=== PATIENT | male | born 1970 | race Caucasian/White ===

== ENCOUNTER 2016-11-11 22:26 | Emergency (ER) | payer OTHER ==
[2016-11-11] MEDS ORDERED: methylPREDNISolone SOD SUCCI 125 MG/2 ML VIAL IV STA (23:14)
[2016-11-11] MEDS ORDERED: diphenhydrAMINE 50 MG CAP PO STA (23:14)
[2016-11-11] MEDS ORDERED: SODIUM CHLORIDE 0.9% 1,000 ML IV STA (23:14)
[2016-11-11] MEDS ORDERED: FAMOTIDINE 20 MG/2 ML VIAL IV STA (23:14)
[2016-11-11] MEDS ORDERED: diphenhydrAMINE 50 MG/ML 1 ML VIAL IVP STA (23:16)
--- NOTE | 2016-11-11 23:18 | ED ---
General Adult HPI <Alejandro Vazquez - Last Filed: 11/12/16 01:30> - General Source: patient, family, RN notes reviewed Mode of arrival: ambulatory Limitations: no limitations <George Thornton - Last Filed: 11/12/16 13:45> - General Chief complaint: ENT Stated complaint: Swollen tongue, dif breathing Time Seen by Provider: 11/11/16 23:09 - History of Present Illness Initial comments: Chief complaint history of present illness a 46-year-old male who took Motrin 400 mg approximately 8 PM shortly thereafter started having significant swelling to his tongue. The patient has similar episode several years ago with lisinopril which has since been stopped. Around emergency room the patient had an IV started immediately given site Medrol, prednisone and Benadryl. No other hives or problems. (George Thornton) - Related Data Previous Rx's Medication Instructions Recorded cloNIDine HCL [Catapres] 0.1 mg PO BID #60 tab 10/06/14 Famotidine [Pepcid] 20 mg PO BID #10 tablet 11/12/16 predniSONE 20 mg PO BID #10 tab 11/12/16 Allergies Allergy/AdvReac Type Severity Reaction Status Date / Time No Known Allergies Allergy Verified 11/11/16 22:40 Review of Systems ROS Other: All systems not noted in ROS Statement are negative. <GeorgeAlejandro - Last Filed: 11/12/16 01:30> ROS Other: All systems not noted in ROS Statement are negative. <NorbertoGeorge - Last Filed: 11/12/16 13:45> ROS Statement: Those systems with pertinent positive or pertinent negative responses have been documented in the HPI. Review of systems no other complaints this time other than a significantly enlarged tongue. The patient is handling his secretions by using a Yankauer suction device with good effect. Patient denying any chest pain he is able to breathe through his nose despite the size of his tongue. No chest pain palpitations. No hives. No rashes. All systems were otherwise reviewed. Past medical problems denies any previous surgeries. The patient is morbidly obese over 350 pounds. Past history of hypertension. Past history of swollen tongue on lisinopril i.e. KEVIN inhibitor. He has not been on those medications for over a year. Nonsmoker nondrinker. No known ALLERGIES. (George Thornton) Past Medical History Past Medical History: Hypertension, Sleep Apnea/CPAP/BIPAP Additional Past Medical History / Comment(s): 10/06/14 Pt presented to [facility] ER with swelling of the tongue and throat. Prior to going to bed last nite pt noticed fromt lower tooth ache. Other HX: Morbid obesity, sleep apnea with CPAP History of Any Multi-Drug Resistant Organisms: None Reported Past Surgical History: No Surgical Hx Reported Additional Past Anesthesia/Blood Transfusion Reaction / Comment(s): Pt has never recieved blood. Past Psychological History: No Psychological Hx Reported Additional Psychological History / Comment(s): Pt lives at home with parents. He is independent. 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 Smoking Status: Never smoker Past Alcohol Use History: Rare Past Drug Use History: None Reported - Past Family History Father Family Medical History: Diabetes Mellitus Mother Family Medical History: Diabetes Mellitus <NorbertoGeorge - Last Filed: 11/12/16 13:45> General Exam <Alejandro Vazquez - Last Filed: 11/12/16 01:30> Limitations: no limitations <George Thornton - Last Filed: 11/12/16 13:45> - General Exam Comments Initial Comments: General: The patient is awake and alert, presents with a significantly swollen tongue after taking Motrin. Vital signs show temperature 90.9 pulse 70 respiratory rate 20 pulse ox on percent room air blood pressure elevated 182/109. Patient does have a history of hypertension. He is in some distress.. Eye: Pupils are equal, round and reactive to light, extra-ocular movements are intact ; there is normal conjunctiva bilaterally. No signs of icterus. Ears, nose, mouth and throat: There are moist mucous membranes, patient has significant only swollen tongue. Neck: The neck is supple, there is no tenderness or JVD. Cardiovascular: There is a regular rate and rhythm. No murmur, rub or gallop is appreciated. Respiratory: Lungs are clear to auscultation, respirations are non-labored, breath sounds are equal. No wheezes, stridor, rales, or rhonchi. Gastrointestinal: Morbid obese but no complaints of any nausea vomiting or diarrhea. Back: No back pain. Musculoskeletal: Normal ROM, no tenderness, chronic edema but no evidence of any hives or skin rash. Neurological: No noted or complained of any neuro deficits. Skin: Skin is warm and dry and no rashes or lesions are noted. (George Thornton) Course <Alejandro Vazquez - Last Filed: 11/12/16 01:30> <George Thornton - Last Filed: 11/12/16 13:45> Vital Signs 11/11/16 11/11/16 11/11/16 22:38 23:18 23:58 Temperature 99 F Pulse Rate 70 70 67 Respiratory 20 18 18 Rate Blood Pressure 182/109 179/114 168/95 O2 Sat by Pulse 100 99 99 Oximetry 11/12/16 11/12/16 01:09 01:44 Temperature 99.1 F 96 F L Pulse Rate 76 76 Respiratory 18 18 Rate Blood Pressure 156/87 154/98 O2 Sat by Pulse 98 96 Oximetry - Reevaluation(s) Reevaluation #1: 11/12/16 01:29 Patient is feeling markedly better at this time he will be discharged on appropriate medication (Alejandro Vazquez) Medical Decision Making - Lab Data Result diagrams: 11/11/16 23:30 11/11/16 23:30 <Alejandro Vazquez - Last Filed: 11/12/16 01:30> - Lab Data Result diagrams: 11/11/16 23:30 11/11/16 23:30 <George Thornton - Last Filed: 11/12/16 13:45> - Medical Decision Making Patient steadily improving with the tongue becoming slightly smaller on every reexamination. The patient will continue being observed for slightly longer. We did discuss the need for hospitalization and does not come down safely to a size he can handle at home. Labs show white count 7.3 hemoglobin 15 hematocrit of 47 with a potassium 4.2. BUN 18 creatinine 1.2 with a GFR greater than 60. Glucose 106. Patient will continue to be observed he wants to go home but not quite ready yet. Final disposition will be determined by Dr. Femi Vazquez (George Thornton) - Lab Data Lab Results 11/11/16 11/11/16 Range/Units 23:30 23:30 WBC 7.3 (3.8-10.6) k/uL RBC 5.28 (4.30-5.90) m/uL Hgb 15.6 (13.0-17.5) gm/dL Hct 47.3 (39.0-53.0) % MCV 89.5 (80.0-100.0) fL MCH 29.6 (25.0-35.0) pg MCHC 33.1 (31.0-37.0) g/dL RDW 13.3 (11.5-15.5) % Plt Count 206 (150-450) k/uL Neutrophils % 63 % Lymphocytes % 24 % Monocytes % 6 % Eosinophils % 4 % Basophils % 1 % Neutrophils # 4.6 (1.3-7.7) k/uL Lymphocytes # 1.7 (1.0-4.8) k/uL Monocytes # 0.4 (0-1.0) k/uL Eosinophils # 0.3 (0-0.7) k/uL Basophils # 0.1 (0-0.2) k/uL Sodium 143 (137-145) mmol/L Potassium 4.2 (3.5-5.1) mmol/L Chloride 108 H (98-107) mmol/L Carbon Dioxide 24 (22-30) mmol/L Anion Gap 11 mmol/L BUN 18 (9-20) mg/dL Creatinine 1.20 (0.66-1.25) mg/dL Est GFR (MDRD) Af Amer >60 (>60 ml/min/1.73 sqM) Est GFR (MDRD) Non-Af >60 (>60 ml/min/1.73 sqM) Glucose 106 H (74-99) mg/dL Calcium 9.0 (8.4-10.2) mg/dL Disposition <Alejandro Vazquez - Last Filed: 11/12/16 01:30> Time of Disposition: 13:45 <George Thornton - Last Filed: 11/12/16 13:45> Clinical Impression: Allergic reaction, Glossitis, Urticaria Disposition: HOME SELF-CARE Condition: Good Instructions: Urticaria (ED), General Allergic Reaction (ED) Prescriptions: Famotidine [Pepcid] 20 mg PO BID #10 tablet predniSONE 20 mg PO BID #10 tab Referrals: Filiberto Morris DO [Primary Care Provider] - 1-2 days
[2016-11-11 23:19] VITALS: RESP 18
[2016-11-11 23:43] LABS: Basophils # (A) 0.1 k/uL (0-0.2); Basophils % (A) 1 %; CH 30.3; Eosinophils # (A) 0.3 k/uL (0-0.7); Eosinophils % (A) 4 %; HCT 47.3 % (39.0-53.0); HDW 2.96; HGB 15.6 gm/dL (13.0-17.5); Luc # (Auto) 0.23; Luc % (Auto) 3; Lymphocytes # (A) 1.7 k/uL (1.0-4.8); Lymphocytes % (A) 24 %; MCH 29.6 pg (25.0-35.0); MCHC 33.1 g/dL (31.0-37.0); MCV 89.5 fL (80.0-100.0); Mean Platelet Volume 6.6; Monocytes # (A) 0.4 k/uL (0-1.0); Monocytes % (A) 6 %; Neutrophils # (A) 4.6 k/uL (1.3-7.7); Neutrophils % (A) 63 %; RBC 5.28 m/uL (4.30-5.90); RDW 13.3 % (11.5-15.5); WBC 7.3 k/uL (3.8-10.6); WBC (Perox) 7.11
[2016-11-11 23:57] LABS: Anion Gap 11 mmol/L; Blood Urea Nitrogen 18 mg/dL (9-20); Carbon Dioxide 24 mmol/L (22-30); Chloride 108 mmol/L (98-107); Glucose 106 mg/dL (74-99); Non-African American GFR(MDRD) >60 (>60 ml/min/1.73 sqM); Potassium 4.2 mmol/L (3.5-5.1); Sodium 143 mmol/L (137-145)
[2016-11-12 01:11] VITALS: PULSE 76
[2016-11-12 01:45] VITALS: BP 154/98; TEMP 96
== END 2016-11-12 01:44 | disposition home or self-care (01) ==
LOC: EC 22:26
DX: L50.0 Allergic urticaria (principal); I10 Essential (primary) hypertension; Z79.899 Other long term (current) drug therapy
CPT/HCPCS: 99283; 96374; 96375 ×2; 96361 ×2; 36415; 80048; 85025; J1200; J2930

== ENCOUNTER 2018-01-08 23:47 | Inpatient (IN) | payer OTHER ==
--- NOTE | 2018-01-09 00:17 | ED ---
General Adult HPI - General Chief complaint: Shortness of Breath Stated complaint: GINA Time Seen by Provider: 01/09/18 00:10 Source: patient, RN notes reviewed Mode of arrival: ambulatory Limitations: no limitations - History of Present Illness Initial comments: Patient is a pleasant 47-year-old male presenting to the emergency department shortness of breath. Onset was around a half an hour ago. Patient did have an episode this morning and seen only around 5 minutes. Otherwise no history of similar symptoms previously. No associated chest pain. No cough. Patient does not feel anxious. No fevers. - Related Data Home Medications Medication Instructions Recorded Confirmed amLODIPine BESYLATE [Norvasc] 10 mg PO 01/08/18 cloNIDine HCL [Catapres] 0.2 mg PO BID 01/08/18 01/08/18 Allergies Allergy/AdvReac Type Severity Reaction Status Date / Time aspirin Allergy Swelling Verified 08/29/17 18:36 Review of Systems ROS Statement: Those systems with pertinent positive or pertinent negative responses have been documented in the HPI. ROS Other: All systems not noted in ROS Statement are negative. Constitutional: Denies: fever Eyes: Denies: eye pain ENT: Denies: ear pain Respiratory: Reports: dyspnea. Denies: cough Cardiovascular: Denies: chest pain Endocrine: Denies: fatigue Gastrointestinal: Denies: abdominal pain Genitourinary: Denies: dysuria Musculoskeletal: Denies: back pain Skin: Denies: rash Neurological: Denies: headache Past Medical History Past Medical History: Hypertension, Sleep Apnea/CPAP/BIPAP Additional Past Medical History / Comment(s): 10/06/[address] [facility] ER with swelling of the tongue and throat. Prior to going to bed last nite pt noticed fromt lower tooth ache. Other HX: Morbid obesity, sleep apnea with CPAP History of Any Multi-Drug Resistant Organisms: None Reported Past Surgical History: No Surgical Hx Reported Additional Past Anesthesia/Blood Transfusion Reaction / Comment(s): Pt has never recieved blood. Past Psychological History: No Psychological Hx Reported Smoking Status: Never smoker Past Alcohol Use History: Rare Past Drug Use History: None Reported - Past Family History Father Family Medical History: Diabetes Mellitus Mother Family Medical History: Diabetes Mellitus General Exam Limitations: no limitations General appearance: alert Head exam: Present: atraumatic Eye exam: Present: normal appearance, PERRL ENT exam: Present: normal oropharynx Neck exam: Present: normal inspection Respiratory exam: Present: normal lung sounds bilaterally. Absent: wheezes Cardiovascular Exam: Present: tachycardia, normal heart sounds Expanded Peripheral pulses: 2+: Radial (R), Radial (L), Dorsalis Pedis (R), Dorsalis Pedis (L) GI/Abdominal exam: Present: soft. Absent: tenderness Extremities exam: Present: normal inspection. Absent: pedal edema, calf tenderness Neurological exam: Present: alert Psychiatric exam: Present: normal affect, normal mood Skin exam: Present: normal color Course Vital Signs 01/08/18 01/09/18 23:50 00:16 Temperature 97.7 F Pulse Rate 110 H 93 Respiratory 28 H 27 H Rate Blood Pressure 175/91 155/84 O2 Sat by Pulse 99 100 Oximetry - Reevaluation(s) Reevaluation #1: 01/09/18 01:58 Patient does meet Sirs criteria. There is suspected pneumonia and therefore patient meet sepsis criteria. Blood culture and lactic acid and IV antibiotics will be ordered. EKG Findings - EKG Comments: EKG Findings:: Neuro complex tachycardia with a rate of 108. QRS 116. QT 494. QTC 661. [place] indeterminate. Right bundle branch block. Inferior Q waves. Nonspecific T waves. Medical Decision Making - Medical Decision Making Patient is reevaluated and somewhat improved. CT findings are unclear at this time. Patient will be admitted and treated for possible pneumonia pending pulmonary evaluation. Practitioner Jacqueline jv baseball coach was paged for admission for Dr. Ball, covering for Dr. chan, who admits for Dr. Morris. Patient updated. - Lab Data Result diagrams: 01/09/18 00:15 01/09/18 00:15 Lab Results 01/09/18 01/09/18 01/09/18 Range/Units 00:15 00:15 00:15 WBC (3.8-10.6) k/uL RBC (4.30-5.90) m/uL Hgb (13.0-17.5) gm/dL Hct (39.0-53.0) % MCV (80.0-100.0) fL MCH (25.0-35.0) pg MCHC (31.0-37.0) g/dL RDW (11.5-15.5) % Plt Count (150-450) k/uL Neutrophils % % Lymphocytes % % Monocytes % % Eosinophils % % Basophils % % Neutrophils # (1.3-7.7) k/uL Lymphocytes # (1.0-4.8) k/uL Monocytes # (0-1.0) k/uL Eosinophils # (0-0.7) k/uL Basophils # (0-0.2) k/uL Sodium 142 (137-145) mmol/L Potassium 3.8 (3.5-5.1) mmol/L Chloride 105 (98-107) mmol/L Carbon Dioxide 18 L (22-30) mmol/L Anion Gap 19 mmol/L BUN 19 (9-20) mg/dL Creatinine 1.20 (0.66-1.25) mg/dL Est GFR (CKD-EPI)AfAm 82 (>60 ml/min/1.73 sqM) Est GFR (CKD-EPI)NonAf 71 (>60 ml/min/1.73 sqM) Glucose 164 H (74-99) mg/dL Calcium 9.6 (8.4-10.2) mg/dL Magnesium 2.2 (1.6-2.3) mg/dL Total Bilirubin 0.6 (0.2-1.3) mg/dL AST 24 (17-59) U/L ALT 27 (21-72) U/L Alkaline Phosphatase 111 (38-126) U/L Total Creatine Kinase 91 (55-170) U/L CK-MB (CK-2) 0.5 (0.0-2.4) ng/mL CK-MB (CK-2) Rel Index 0.5 Troponin I <0.012 (0.000-0.034) ng/mL NT-Pro-B Natriuret Pep 62 pg/mL Total Protein 7.2 (6.3-8.2) g/dL Albumin 4.2 (3.5-5.0) g/dL 01/09/18 Range/Units 00:15 WBC 9.3 (3.8-10.6) k/uL RBC 5.10 (4.30-5.90) m/uL Hgb 14.8 (13.0-17.5) gm/dL Hct 42.7 (39.0-53.0) % MCV 83.7 (80.0-100.0) fL MCH 29.0 (25.0-35.0) pg MCHC 34.6 (31.0-37.0) g/dL RDW 13.3 (11.5-15.5) % Plt Count 257 (150-450) k/uL Neutrophils % 59 % Lymphocytes % 28 % Monocytes % 8 % Eosinophils % 2 % Basophils % 0 % Neutrophils # 5.5 (1.3-7.7) k/uL Lymphocytes # 2.6 (1.0-4.8) k/uL Monocytes # 0.7 (0-1.0) k/uL Eosinophils # 0.2 (0-0.7) k/uL Basophils # 0.0 (0-0.2) k/uL Sodium (137-145) mmol/L Potassium (3.5-5.1) mmol/L Chloride (98-107) mmol/L Carbon Dioxide (22-30) mmol/L Anion Gap mmol/L BUN (9-20) mg/dL Creatinine (0.66-1.25) mg/dL Est GFR (CKD-EPI)AfAm (>60 ml/min/1.73 sqM) Est GFR (CKD-EPI)NonAf (>60 ml/min/1.73 sqM) Glucose (74-99) mg/dL Calcium (8.4-10.2) mg/dL Magnesium (1.6-2.3) mg/dL Total Bilirubin (0.2-1.3) mg/dL AST (17-59) U/L ALT (21-72) U/L Alkaline Phosphatase (38-126) U/L Total Creatine Kinase (55-170) U/L CK-MB (CK-2) (0.0-2.4) ng/mL CK-MB (CK-2) Rel Index Troponin I (0.000-0.034) ng/mL NT-Pro-B Natriuret Pep pg/mL Total Protein (6.3-8.2) g/dL Albumin (3.5-5.0) g/dL - Radiology Data Radiology results: report reviewed (CT angios the chest negative for pulmonary embolism. Interstitial pulmonary infiltrates or nonspecific.), image reviewed ( Chest x-ray shows no acute process) Disposition Clinical Impression: Dyspnea Disposition: ADMITTED IP TO THIS HOSP Is patient prescribed a controlled substance at d/c from ED?: No Referrals: Arturo,Filiberto, DO [Primary Care Provider] - 1-2 days Decision Time: 01:59
[2018-01-09 00:38] LABS: Albumin 4.2 g/dL (3.5-5.0); Calcium 9.6 mg/dL (8.4-10.2); Magnesium 2.2 mg/dL (1.6-2.3); Potassium 3.8 mmol/L (3.5-5.1); Total Bilirubin 0.6 mg/dL (0.2-1.3); Total Protein 7.2 g/dL (6.3-8.2)
[2018-01-09] MEDS ORDERED: RX INFO: IV CONTRAST WAS GIVEN 1 EACH MISC MISCELLANE PRN (00:44)
[2018-01-09 00:47] LABS: Creatine Kinase 91 U/L (55-170)
--- NOTE | 2018-01-09 00:54 | XR ---
EXAMINATION TYPE: XR chest 2V DATE OF EXAM: 01/09/2018 COMPARISON: 10/06/2014 HISTORY: Difficulty breathing TECHNIQUE: Frontal and lateral views of the chest are obtained. FINDINGS: Heart and mediastinum are normal. Lungs are clear. Diaphragm is normal. There are chest le ads. Bony thorax is intact. IMPRESSION: Normal chest. No change.
[2018-01-09 00:57] LABS: Basophils % (A) 0 %; Eosinophils # (A) 0.2 k/uL (0-0.7); Eosinophils % (A) 2 %; HCT 42.7 % (39.0-53.0); HGB 14.8 gm/dL (13.0-17.5); Lymphocytes # (A) 2.6 k/uL (1.0-4.8); Lymphocytes % (A) 28 %; MCHC 34.6 g/dL (31.0-37.0); MCV 83.7 fL (80.0-100.0); Mean Platelet Volume 7.4; Monocytes # (A) 0.7 k/uL (0-1.0); Monocytes % (A) 8 %; Neutrophils # (A) 5.5 k/uL (1.3-7.7); Neutrophils % (A) 59 %; Platelet Count 257 k/uL (150-450); RDW 13.3 % (11.5-15.5); WBC 9.3 k/uL (3.8-10.6)
[2018-01-09 01:00] LABS: Creatine Kinase MB 0.5 ng/mL (0.0-2.4); Troponin I <0.012 ng/mL (0.000-0.034)
--- NOTE | 2018-01-09 01:29 | CT ---
EXAMINATION TYPE: CT angio chest DATE OF EXAM: 01/09/2018 1:22 AM COMPARISON: 10/29/2013 HISTORY: Prior on [email or web address], Chest pain and GINA, R/O PE CT DLP: 1336.60 mGycm Automated exposure control for dose reduction was used. CONTRAST: CTA scan of the thorax is performed with IV Contrast, patient injected with 70 mL of Isovue 370, pulm onary embolism protocol. There are 3-D post processed images.. FINDINGS: There is groundglass type interstitial infiltrate in the mid and lower lung farrar. Heart is enlarged . There is no pericardial effusion. There is no pleural effusion. There is no evidence of a pulmonary mass. There is no sign of aortic aneurysm or dissection. I see no filling defects in the pulmonary a rteries. There is no mediastinal adenopathy. There are no hilar masses. There is mediastinal lipomato sis. Bony thorax is intact. There is spurring in the thoracic spine. IMPRESSION: NO EVIDENCE OF PULMONARY EMBOLISM. CARDIOMEGALY. INTERSTITIAL PULMONARY INFILTRATES ARE NONSPECIFIC. THERE IS CLEARING OF THE NODULAR BILATERAL PULMONARY INFILTRATES COMPARED TO OLD EXAM.
[2018-01-09] MEDS ORDERED: IPRATROPIUM-ALBUTEROL 3 ML NEB INHALATION PRN (01:59)
[2018-01-09] MEDS ORDERED: AZITHROMYCIN 500 MG in SODIUM CHLORIDE 0.9% 250 ML IVPB STA (01:59)
[2018-01-09] MEDS ORDERED: cefTRIAXone IN SWFI 1,000 MG/10 ML SYRINGE IVP STA (01:59)
[2018-01-09] MEDS ORDERED: PNEUMONIA PROTOCOL UTILIZED 1 EACH MISC PO PRN (01:59)
[2018-01-09] MEDS ORDERED: SODIUM CHLORIDE 0.9% 1,000 ML IV SCH (02:00)
[2018-01-09 04:17] VITALS: BMI 54.5
[2018-01-09 05:32] LABS: D-Dimer 0.47 mg/L FEU (<0.60); Partial Thromboplastin Time 24.4 sec (22.0-30.0); Prothrombin Time 10.2 sec (9.0-12.0)
[2018-01-09] MEDS ORDERED: ALPRAZolam 0.25 MG TAB PO STA (06:22)
[2018-01-09] MEDS: IPRATROPIUM-ALBUTEROL 3 ML NEB INHALATION SCH ×4 (07:28→19:36)
[2018-01-09] MEDS: cloNIDine HCL 0.2 MG TAB PO SCH ×2 (09:43→22:46)
--- NOTE | 2018-01-09 10:09 | P.CNPUL ---
History of Present Illness Consult date: 01/09/18 Reason for consult: dyspnea, pneumonia, abnormal CXR/CT Chief complaint: Pneumonia History of present illness: Consult dated 01/09/2018 This is a 47-year-old male who presented to the emergency department for shortness of breath. He tells us that he was apparently told that he might have pneumonia. He was evaluated for see by CT angiogram for pulmonary embolism. PE was not noted. He did have some minimal changes on chest x-ray and CT suggesting possibility of alveolitis or pneumonitis. They're mostly upper lobe. There is a very mild finding. Does not have any fever. No chills. No cough. No wheezing. No phlegm production. No nausea vomiting or diarrhea. His only home medications were amlodipine and clonidine for hypertension. His chest x-ray labs and medications are all reviewed. CAT scan was reviewed as well. He is feeling better. He points mostly to his stomach when he complains about some of his issues. I'm not sure how the stomach is relating to the issues of shortness of breath. Review of Systems A 12 point review of system is positive for shortness of breath Past Medical History Past Medical History: Hypertension, Sleep Apnea/CPAP/BIPAP Additional Past Medical History / Comment(s): 10/06/14 Pt presented to [facility] ER with swelling of the tongue and throat. Prior to going to bed last nite pt noticed fromt lower tooth ache. Other HX: Morbid obesity, sleep apnea with CPAP History of Any Multi-Drug Resistant Organisms: None Reported Past Surgical History: No Surgical Hx Reported Additional Past Anesthesia/Blood Transfusion Reaction / Comment(s): Pt has never recieved blood. Past Psychological History: No Psychological Hx Reported Additional Psychological History / Comment(s): Pt lives at home with parents. He is independent. He has a lead driver's license. Smoking Status: Never smoker Past Alcohol Use History: Rare Past Drug Use History: None Reported - Past Family History Father Family Medical History: Diabetes Mellitus Mother Family Medical History: Diabetes Mellitus Medications and Allergies Home Medications Medication Instructions Recorded Confirmed Type amLODIPine BESYLATE [Norvasc] 10 mg PO DAILY 01/08/18 01/09/18 History cloNIDine HCL [Catapres] 0.2 mg PO BID 01/09/18 01/09/18 History Allergies Allergy/AdvReac Type Severity Reaction Status Date / Time aspirin Allergy Swelling Verified 01/09/18 07:51 Physical Exam Osteopathic Statement: *. No significant issues noted on an osteopathic structural exam other than those noted in the History and Physical/Consult. Vitals: Vital Signs Temp Pulse Pulse Resp BP BP Pulse Ox 01/09/18 07:40 84 01/09/18 07:30 80 95 01/09/18 05:40 98.7 F 104 H 24 140/85 100 01/09/18 03:52 98.3 F 101 H 22 184/112 96 01/09/18 02:27 97.6 F 112 H 18 146/81 99 01/09/18 02:05 84 18 148/94 99 01/09/18 02:00 100 16 148/94 100 01/09/18 00:16 93 27 H 155/84 100 01/08/18 23:50 97.7 F 110 H 28 H 175/91 99 Intake and Output 01/08/18 01/09/18 01/09/18 22:59 06:59 14:59 Other: Voiding Method Toilet # Voids 1 Weight 158 kg No acute distress, oriented 3. Obese. HEENT examination is grossly unremarkable. Mucous membranes are moist. No oral lesions. Neck supple. Full range of motion. No adenopathy thyromegaly or neck vein distention. Cardiovascular examination reveals regular rhythm rate. S1-S2 normal. No S3 or S4. No discernible murmur noted. Lungs reveal mostly clear breath sounds. A few scattered mild rhonchi. No wheezes or crackles. Abdomen soft, bowel sounds are heard. No masses or tenderness. Extremities are intact. No cyanosis clubbing or edema. Skin is without rash or lesion. Neurologic examination is brief but nonfocal. Results - Laboratory Findings CBC and BMP: 01/09/18 00:15 01/09/18 00:15 PT/INR, D-dimer PT 10.2 sec (9.0-12.0) 01/09/18 04:22 INR 1.0 (<1.2) 01/09/18 04:22 D-Dimer 0.47 mg/L FEU (<0.60) 01/09/18 04:22 Abnormal lab findings: Abnormal Labs 01/09/18 01/09/18 00:15 00:15 Carbon Dioxide 18 L Glucose 164 H Plasma Lactic Acid Michael 3.4 H* - Diagnostic Findings Chest x-ray: image reviewed CT scan - chest: image reviewed (Labs x-rays and medications are reviewed) Assessment and Plan Assessment: Assessment Shortness of breath, possibly related to a mild case of pneumonitis or alveolitis. No yessenia consolidation is noted suggesting pneumonia. PE was ruled out. History of hypertension Obesity Vague abdominal complaints Plan: Plan dated 01/09/2018 The patient does not appear particularly at this time. Vital signs are stable. The patient's saturations are excellent. CT angiogram was negative for PE or aortic dissection. The findings on computed tomography scan are very mild at best. Might relate to some very mild pneumonitis or alveolitis. I believe this patient could be safely treated at home with oral antibiotics. I be happy to see him in follow-up in the office. No additional recommendations are made. The patient is a lifelong nonsmoker. Time with Patient: Greater than 30
--- NOTE | 2018-01-09 13:20 | ECHOF ---
Referral Reason:Swelling, dyspnea MEASUREMENTS -------- HEIGHT: 170.2 cm WEIGHT: 157.8 kg BP: 140/85 RVIDd: 2.9 cm (< 3.3) IVSd: 1.3 cm (0.6 - 1.1) LVIDd: 4.2 cm (3.9 - 5.3) LVPWd: 1.3 cm (0.6 - 1.1) IVSs: 1.7 cm LVIDs: 2.8 cm LVPWs: 1.5 cm LA Diam: 3.1 cm (2.7 - 3.8) LAESV Index (A-L): 22.72 ml/m Ao Diam: 3.3 cm (2.0 - 3.7) AV Cusp: 2.3 cm (1.5 - 2.6) MV EXCURSION: 12.495 mm (> 18.000) MV EF SLOPE: 26 mm/s (70 - 150) EPSS: 0.3 cm MV E Davidson: 0.96 m/s MV DecT: 205 ms MV A Davidson: 1.10 m/s MV E/A Ratio: 0.87 AV maxP.26 mmHg AV meanP.52 mmHg FINDINGS -------- Sinus rhythm. This was a technically adequate study. The left ventricular size is normal. There is mild concentric left ventricular hypertrophy. Overa ll left ventricular systolic function is normal with, an EF between 55 - 60 %. The right ventricle is normal in size. Normal LA size by volume 22+/-6 ml/m2. The right atrium is normal in size. The aortic valve is trileaflet and appears structurally normal. Peak/mean gradient across the Aorti c Valve is 14.26mmHg / 7.52mmHg. Mild mitral annular calcification present. The tricuspid valve appears structurally normal. Trace/mild (physiologic) pulmonic regurgitation. The aortic root size is normal. IVC Not well visulized. There is no pericardial effusion. CONCLUSIONS -------- 1. Sinus rhythm. 2. This was a technically adequate study. 3. The left ventricular size is normal. 4. There is mild concentric left ventricular hypertrophy. 5. Overall left ventricular systolic function is normal with, an EF between 55 - 60 %. 6. The right ventricle is normal in size. 7. Normal LA size by volume 22+/-6 ml/m2. 8. The right atrium is normal in size. 9. The aortic valve is trileaflet and appears structurally normal. 10. Peak/mean gradient across the Aortic Valve is 14.26mmHg / 7.52mmHg. 11. Mild mitral annular calcification present. 12. The tricuspid valve appears structurally normal. 13. Trace/mild (physiologic) pulmonic regurgitation. 14. The aortic root size is normal. 15. IVC Not well visulized. 16. There is no pericardial effusion. [employer]: Diann Lane RDCS
--- NOTE | 2018-01-09 14:04 | P.HPIM ---
History of Present Illness 47-year-old male who presented to the emergency department for shortness of breath, cough without any sputum production. He was evaluated for see by CT angiogram for pulmonary embolism. PE was not noted. He did have some minimal changes on chest x-ray and CT suggesting possibility of alveolitis or pneumonitis. They're mostly upper lobe. There is a very mild finding. Does not have any fever. No chills. No cough. No wheezing. No phlegm production. No nausea vomiting or diarrhea. His only home medications were amlodipine and clonidine for hypertension. His chest x-ray labs and medications are all reviewed. CAT scan was reviewed as well. He is feeling better. patient is morbidly obese appears to be in mild the distress may be because of pickwickian syndrome. Will ablate the patient if patient is saturating well will be discharged today. Patient was started on antibiotics for pneumonia here all the CAT scan is not convincing for lower pneumonia Review of Systems REVIEW OF SYSTEMS: CONSTITUTIONAL: No fever, no malaise, no fatigue. HEENT: No recent visual problems or hearing problems. Denied any sore throat. CARDIOVASCULAR: No chest pain, orthopnea, PND, no palpitations, no syncope. PULMONARY: as mentioned in HPI GASTROINTESTINAL: No diarrhea, no nausea, no vomiting, no abdominal pain. Normoactive bowel sounds. NEUROLOGICAL: No headaches, no weakness, no numbness. HEMATOLOGICAL: Denies any bleeding or petechiae. GENITOURINARY: Denies any burning micturition, frequency, or urgency. MUSCULOSKELETAL/RHEUMATOLOGICAL: Denies any joint pain, swelling, or any muscle pain. ENDOCRINE: Denies any polyuria or polydipsia. The rest of the 14-point review of systems is negative. Past Medical History Past Medical History: Hypertension, Sleep Apnea/CPAP/BIPAP Additional Past Medical History / Comment(s): 10/06/14 Pt presented to [facility] ER with swelling of the tongue and throat. Prior to going to bed last nite pt noticed fromt lower tooth ache. Other HX: Morbid obesity, sleep apnea with CPAP History of Any Multi-Drug Resistant Organisms: None Reported Past Surgical History: No Surgical Hx Reported Additional Past Anesthesia/Blood Transfusion Reaction / Comment(s): Pt has never recieved blood. Past Psychological History: No Psychological Hx Reported Additional Psychological History / Comment(s): Pt lives at home with parents. He is independent. 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 Smoking Status: Never smoker Past Alcohol Use History: Rare Past Drug Use History: None Reported - Past Family History Father Family Medical History: Diabetes Mellitus Mother Family Medical History: Diabetes Mellitus Medications and Allergies Home Medications Medication Instructions Recorded Confirmed Type amLODIPine BESYLATE [Norvasc] 10 mg PO DAILY 01/08/18 01/09/18 History cloNIDine HCL [Catapres] 0.2 mg PO BID 01/09/18 01/09/18 History Allergies Allergy/AdvReac Type Severity Reaction Status Date / Time aspirin Allergy Swelling Verified 01/09/18 07:51 Physical Exam Vitals: Vital Signs Temp Pulse Pulse Resp BP BP Pulse Ox 01/09/18 11:28 85 16 01/09/18 11:18 83 16 95 01/09/18 07:40 84 01/09/18 07:30 80 95 01/09/18 05:40 98.7 F 104 H 24 140/85 100 01/09/18 03:52 98.3 F 101 H 22 184/112 96 01/09/18 02:27 97.6 F 112 H 18 146/81 99 01/09/18 02:05 84 18 148/94 99 01/09/18 02:00 100 16 148/94 100 01/09/18 00:16 93 27 H 155/84 100 01/08/18 23:50 97.7 F 110 H 28 H 175/91 99 Intake and Output 01/08/18 01/09/18 01/09/18 22:59 06:59 14:59 Other: Voiding Method Toilet # Voids 1 Weight 158 kg PHYSICAL EXAMINATION: GENERAL: The patient is alert and oriented x3, not in any acute distress. morbidly obese HEENT: Pupils are round and equally reacting to light. EOMI. No scleral icterus. No conjunctival pallor. Normocephalic, atraumatic. No pharyngeal erythema. No thyromegaly. CARDIOVASCULAR: S1 and S2 present. No murmurs, rubs, or gallops. PULMONARY: Chest is clear to auscultation, no wheezing or crackles. ABDOMEN: Soft, nontender, nondistended, normoactive bowel sounds. No palpable organomegaly. MUSCULOSKELETAL: No joint swelling or deformity. EXTREMITIES: No cyanosis, clubbing, or pedal edema. NEUROLOGICAL: Gross neurological examination did not reveal any focal deficits. SKIN: No rashes. Results CBC & Chem 7: 01/09/18 00:15 01/09/18 00:15 Labs: Abnormal Lab Results - Last 24 Hours (Table) 01/09/18 01/09/18 Range/Units 00:15 00:15 Carbon Dioxide 18 L (22-30) mmol/L Glucose 164 H (74-99) mg/dL Plasma Lactic Acid Michael 3.4 H* (0.7-2.0) mmol/L Thrombosis Risk Factor Assmnt - Choose All That Apply Any of the Below Risk Factors Present?: Yes Each Factor Represents 1 point: Age 41-60 years, Obesity (BMI >25), Swollen legs (current) Other Risk Factors: No Other congenital or acquired thrombophilia - If yes, enter type in comment: No Thrombosis Risk Factor Assessment Total Risk Factor Score: 3 Thrombosis Risk Factor Assessment Level: Moderate Risk Assessment and Plan Plan: -shortness of breath: Most probably related to some nonspecific alveolitis as from his previous infection are present ongoing viral illness, with contribution from morbid obesity restrictive lung disease. The patient is clinically doing well will be discharged on antibiotics. Pulmonary evaluated the patient -Morbid obesity with possibility of pickwickian syndrome -Hypertension -sleep apnea uses CPAP machine at home
--- NOTE | 2018-01-09 14:07 | P.DS ---
Providers Date of admission: 01/09/18 09:08 Attending physician: Shannan Ball Consults: 01/09/18 01:59 Consult Physician Routine Consulting Provider: Nina Nelson Consult Reason/Comments: Dyspnea Do you want consulting provider notified?: Yes Primary care physician: Filiberto Morris [facility] Course: please refer to my HPI Plan - Discharge Summary Discharge Rx Participant: Yes New Discharge Prescriptions: New Cefuroxime Axetil [Ceftin] 500 mg PO BID #14 tab Albuterol Inhaler [Ventolin Hfa Inhaler] 1 - 2 puff INHALATION Q6HR PRN #1 inhaler PRN Reason: Shortness Of Breath Or Wheezing Continue amLODIPine BESYLATE [Norvasc] 10 mg PO DAILY cloNIDine HCL [Catapres] 0.2 mg PO BID Discharge Medication List amLODIPine BESYLATE [Norvasc] 10 mg PO DAILY 01/08/18 [History] Albuterol Inhaler [Ventolin Hfa Inhaler] 1 - 2 puff INHALATION Q6HR PRN #1 inhaler 01/09/18 [Rx] Cefuroxime Axetil [Ceftin] 500 mg PO BID #14 tab 01/09/18 [Rx] cloNIDine HCL [Catapres] 0.2 mg PO BID 01/09/18 [History] Follow up Appointment(s)/Referral(s): Filiberto Morris DO [Primary Care Provider] - 3 Days [facility] Visiting Nurse, [NON-STAFF] -
[2018-01-09] MEDS: ALPRAZolam 0.5 MG TAB PO PRN (16:54)
[2018-01-10] MEDS: ALPRAZolam 0.5 MG TAB PO PRN (01:52)
[2018-01-10] MEDS: IPRATROPIUM-ALBUTEROL 3 ML NEB INHALATION SCH ×2 (07:21→11:08)
--- NOTE | 2018-01-10 08:05 | XR ---
EXAMINATION TYPE: XR chest 2V DATE OF EXAM: 01/10/2018 COMPARISON: 01/09/2018 TECHNIQUE: PA and lateral views submitted. HISTORY: Difficulty breathing FINDINGS: The lungs are clear and there is no pneumothorax, pleural effusion, or focal pneumonia. Hypertrophi c and degenerative change of the spine. Pleural thickening stable. IMPRESSION: 1. No acute process.
[2018-01-10] MEDS ORDERED: AZITHROMYCIN 500 MG TAB PO SCH (09:00)
[2018-01-10] MEDS ORDERED: cefTRIAXone IN SWFI 1,000 MG/10 ML SYRINGE IVP SCH (09:00)
[2018-01-10 09:49] LABS: HCT 42.7 % (39.0-53.0); HGB 14.1 gm/dL (13.0-17.5); MCH 29.1 pg (25.0-35.0); MCHC 33.1 g/dL (31.0-37.0); MCV 88.1 fL (80.0-100.0); Mean Platelet Volume 7.1; Platelet Count 238 k/uL (150-450); RBC 4.85 m/uL (4.30-5.90); RDW 13.7 % (11.5-15.5); WBC 8.5 k/uL (3.8-10.6)
[2018-01-10 10:21] LABS: Anion Gap 16 mmol/L; Blood Urea Nitrogen 16 mg/dL (9-20); Calcium 9.1 mg/dL (8.4-10.2); Carbon Dioxide 23 mmol/L (22-30); Chloride 103 mmol/L (98-107); Glucose 200 mg/dL (74-99); Potassium 4.1 mmol/L (3.5-5.1); Sodium 142 mmol/L (137-145)
--- NOTE | 2018-01-10 10:49 | P.PN ---
Subjective Progress Note Date: 01/10/18 Principal diagnosis: Pneumonia Progress note dated 01/10/2018 This is a 37-year-old obese male who presented to the emergency department with complaints of shortness of breath. He is a lifelong nonsmoker. He had a CT angiogram that was negative for pulmonary embolism. He was thought to possibly have some pneumonia. At best he has some very mild alveolitis or pneumonitis. Anyway, the patient's feeling much better could be discharged home on some oral antibiotics. I suspect he does have a component of sleep apnea syndrome and possibly pickwickian syndrome. This seems to be evaluated as an outpatient. In addition, even though he never smoked, pulmonary function test would be helpful. Objective - Vital Signs Vital signs: Vital Signs Temp 98.2 F 01/10/18 05:49 Pulse 60 01/10/18 07:31 Resp 24 01/10/18 05:49 BP 137/95 01/10/18 05:49 Pulse Ox 99 01/10/18 07:22 Intake & Output 01/09/18 01/10/18 01/10/18 18:59 06:59 18:59 Intake Total 1200 Output Total 250 Balance 950 Intake: Oral 1200 Output: Urine 250 Other: Voiding Method Toilet # Voids 3 1 # Bowel Movements 0 - Exam No acute distress, oriented 3. Nasal O2 in place. HEENT examination is grossly unremarkable. Mucous membranes are moist. No oral lesions. Neck supple. Full range of motion. No adenopathy thyromegaly or neck vein distention. Cardiovascular examination reveals regular rhythm rate. S1-S2 normal. No S3 or S4. No discernible murmur noted. Lungs reveal clear breath sounds. His breath sounds are equal bilaterally. No adventitious lung sounds including wheezes rhonchi or crackles. Abdomen soft bowel sounds are heard. No masses or tenderness. Extremities are intact. No cyanosis clubbing or edema. Skin is without rash or lesion. Neurologic examination is brief but nonfocal. - Labs CBC & Chem 7: 01/10/18 09:17 01/09/18 00:15 Labs: Microbiology - Last 24 Hours (Table) 01/09/18 18:00 Gram Stain - Preliminary Sputum 01/09/18 00:15 Blood Culture - Preliminary Blood No Growth after 24 hours Assessment and Plan Assessment: Assessment Shortness of breath, possibly related to a mild case of pneumonitis or alveolitis. No yessenia consolidation is noted suggesting pneumonia. PE was ruled out. Today's chest x-ray was normal. History of hypertension Obesity Vague abdominal complaints Possible pickwickian syndrome Possible sleep apnea syndrome Plan: Plan dated 01/09/2018 The patient does not appear particularly at this time. Vital signs are stable. The patient's saturations are excellent. CT angiogram was negative for PE or aortic dissection. The findings on computed tomography scan are very mild at best. Might relate to some very mild pneumonitis or alveolitis. I believe this patient could be safely treated at home with oral antibiotics. I be happy to see him in follow-up in the office. No additional recommendations are made. The patient is a lifelong nonsmoker. Plan dated 01/10/2018 The patient does look well today. The patient's chest x-ray today was did not show an acute process. CT angiogram was negative for PE and aortic dissection. The patient may have a very mild case of pneumonitis. Feeling much better. He is a lifelong nonsmoker. He should be evaluated as an outpatient. Pickwickian syndrome and also sleep apnea syndrome. In addition outpatient pulmonary function test would be helpful. He is a lifelong nonsmoker. No additional recommendations are made. Prognosis is guarded. Time with Patient: Less than 30
--- NOTE | 2018-01-10 14:21 | P.DS ---
Providers Date of admission: 01/09/18 09:08 Attending physician: Shannan Ball Consults: 01/09/18 01:59 Consult Physician Routine Consulting Provider: Nina Nelson Consult Reason/Comments: Dyspnea Do you want consulting provider notified?: Yes Primary care physician: Filiberto [facility] Course: 47-year-old admitted for short of breath found to have some acute lung injury may be atypical pneumonia. Patient was cleared for discharge to discharge the patient after discharge patient ended up having an episode of anxiety patient will be discharged on 3 days of Xanax will follow with primary care physician as an outpatient patient has bilateral pedal edema which is probably secondary to amlodipine and vasodilation related to amlodipine patient will be given 20 mg of Lasix and patient will follow with the PCP in 2-3 days and will need basic Randall metabolic profile at that time. PHYSICAL EXAMINATION: GENERAL: The patient is alert and oriented x3, not in any acute distress. morbidly obese HEENT: Pupils are round and equally reacting to light. EOMI. No scleral icterus. No conjunctival pallor. Normocephalic, atraumatic. No pharyngeal erythema. No thyromegaly. CARDIOVASCULAR: S1 and S2 present. No murmurs, rubs, or gallops. PULMONARY: Chest is clear to auscultation, no wheezing or crackles. ABDOMEN: Soft, nontender, nondistended, normoactive bowel sounds. No palpable organomegaly. MUSCULOSKELETAL: No joint swelling or deformity. EXTREMITIES: No cyanosis, clubbing, or pedal edema. NEUROLOGICAL: Gross neurological examination did not reveal any focal deficits. SKIN: No rashes. Assessment and Plan Plan: -shortness of breath: Most probably related to some nonspecific alveolitis as from his previous infection are present ongoing viral illness, with contribution from morbid obesity restrictive lung disease. The patient is clinically doing well will be discharged on antibiotics. Pulmonary evaluated the patient -Morbid obesity with possibility of pickwickian syndrome -Hypertension -sleep apnea uses CPAP machine at home Plan - Discharge Summary Discharge Rx Participant: Yes New Discharge Prescriptions: New Cefuroxime Axetil [Ceftin] 500 mg PO BID #14 tab Albuterol Inhaler [Ventolin Hfa Inhaler] 1 - 2 puff INHALATION Q6HR PRN #1 inhaler PRN Reason: Shortness Of Breath Or Wheezing ALPRAZolam [Xanax] 0.25 mg PO TID PRN 3 Days #9 tab PRN Reason: Anxiety Furosemide [Lasix] 20 mg PO DAILY #30 tab Continue amLODIPine BESYLATE [Norvasc] 10 mg PO DAILY cloNIDine HCL [Catapres] 0.2 mg PO BID Discharge Medication List amLODIPine BESYLATE [Norvasc] 10 mg PO DAILY 01/08/18 [History] Albuterol Inhaler [Ventolin Hfa Inhaler] 1 - 2 puff INHALATION Q6HR PRN #1 inhaler 01/09/18 [Rx] Cefuroxime Axetil [Ceftin] 500 mg PO BID #14 tab 01/09/18 [Rx] cloNIDine HCL [Catapres] 0.2 mg PO BID 01/09/18 [History] ALPRAZolam [Xanax] 0.25 mg PO TID PRN 3 Days #9 tab 01/10/18 [Rx] Furosemide [Lasix] 20 mg PO DAILY #30 tab 01/10/18 [Rx] Follow up Appointment(s)/Referral(s): Filiberto Morris DO [Primary Care Provider] - 01/15/18 10:00 am (Appointment with NOAH Choi) [facility] Visiting Nurse, [NON-STAFF] - Patient Instructions/Handouts: Dyspnea (GEN), Anxiety (GEN) Activity/Diet/Wound Care/Special Instructions: Cardiac diet. Activity as tolerated. Discharge Disposition: HOME WITH HOME HEALTH SERVICES
--- NOTE | 2018-01-10 14:21 | P.HPIM ---
History of Present Illness 47-year-old admitted for short of breath found to have some acute lung injury may be atypical pneumonia. Patient was cleared for discharge to discharge the patient after discharge patient ended up having an episode of anxiety patient will be discharged on 3 days of Xanax will follow with primary care physician as an outpatient patient has bilateral pedal edema which is probably secondary to amlodipine and vasodilation related to amlodipine patient will be given 20 mg of Lasix and patient will follow with the PCP in 2-3 days and will need basic Randall metabolic profile at that time. PHYSICAL EXAMINATION: GENERAL: The patient is alert and oriented x3, not in any acute distress. morbidly obese HEENT: Pupils are round and equally reacting to light. EOMI. No scleral icterus. No conjunctival pallor. Normocephalic, atraumatic. No pharyngeal erythema. No thyromegaly. CARDIOVASCULAR: S1 and S2 present. No murmurs, rubs, or gallops. PULMONARY: Chest is clear to auscultation, no wheezing or crackles. ABDOMEN: Soft, nontender, nondistended, normoactive bowel sounds. No palpable organomegaly. MUSCULOSKELETAL: No joint swelling or deformity. EXTREMITIES: No cyanosis, clubbing, or pedal edema. NEUROLOGICAL: Gross neurological examination did not reveal any focal deficits. SKIN: No rashes. Assessment and Plan Plan: -shortness of breath: Most probably related to some nonspecific alveolitis as from his previous infection are present ongoing viral illness, with contribution from morbid obesity restrictive lung disease. The patient is clinically doing well will be discharged on antibiotics. Pulmonary evaluated the patient -Morbid obesity with possibility of pickwickian syndrome -Hypertension -sleep apnea uses CPAP machine at home Past Medical History Past Medical History: Hypertension, Sleep Apnea/CPAP/BIPAP Additional Past Medical History / Comment(s): 10/06/14 Pt presented to [facility] ER with swelling of the tongue and throat. Prior to going to bed last nite pt noticed fromt lower tooth ache. Other HX: Morbid obesity, sleep apnea with CPAP History of Any Multi-Drug Resistant Organisms: None Reported Past Surgical History: No Surgical Hx Reported Additional Past Anesthesia/Blood Transfusion Reaction / Comment(s): Pt has never recieved blood. Past Psychological History: No Psychological Hx Reported Additional Psychological History / Comment(s): Pt lives at home with parents. He is independent. He has a driver/guide's license. Smoking Status: Never smoker Past Alcohol Use History: Rare Past Drug Use History: None Reported - Past Family History Father Family Medical History: Diabetes Mellitus Mother Family Medical History: Diabetes Mellitus Medications and Allergies Home Medications Medication Instructions Recorded Confirmed Type amLODIPine BESYLATE [Norvasc] 10 mg PO DAILY 01/08/18 01/09/18 History Albuterol Inhaler [Ventolin Hfa 1 - 2 puff INHALATION Q6HR PRN #1 01/09/18 Rx Inhaler] inhaler Cefuroxime Axetil [Ceftin] 500 mg PO BID #14 tab 01/09/18 Rx cloNIDine HCL [Catapres] 0.2 mg PO BID 01/09/18 01/09/18 History ALPRAZolam [Xanax] 0.25 mg PO TID PRN 3 Days #9 tab 01/10/18 Rx Furosemide [Lasix] 20 mg PO DAILY #30 tab 01/10/18 Rx Allergies Allergy/AdvReac Type Severity Reaction Status Date / Time aspirin Allergy Swelling Verified 01/09/18 07:51 Physical Exam Vitals: Vital Signs Temp Pulse Pulse Resp BP Pulse Ox 01/10/18 11:10 62 01/10/18 07:31 60 01/10/18 07:22 56 L 99 01/10/18 05:49 98.2 F 79 24 137/95 95 01/09/18 23:00 97.6 F 86 24 128/89 95 01/09/18 19:46 84 16 01/09/18 19:36 82 16 01/09/18 15:48 83 16 01/09/18 15:39 85 16 93 L 01/09/18 15:00 98.6 F 113 H 18 145/72 98 Intake and Output 01/09/18 01/10/18 01/10/18 22:59 06:59 14:59 Intake Total 600 600 Output Total 250 Balance 350 600 Intake: Oral 600 600 Output: Urine 250 Other: Voiding Method Toilet # Voids 1 Results CBC & Chem 7: 01/10/18 09:17 01/10/18 09:17 Labs: Abnormal Lab Results - Last 24 Hours (Table) 01/10/18 Range/Units 09:17 Glucose 200 H (74-99) mg/dL Microbiology - Last 24 Hours (Table) 01/09/18 18:00 Gram Stain - Preliminary Sputum 01/09/18 00:15 Blood Culture - Preliminary Blood No Growth after 24 hours Thrombosis Risk Factor Assmnt - Choose All That Apply Any of the Below Risk Factors Present?: Yes Each Factor Represents 1 point: Age 41-60 years, Obesity (BMI >25), Swollen legs (current) Other Risk Factors: No Other congenital or acquired thrombophilia - If yes, enter type in comment: No Thrombosis Risk Factor Assessment Total Risk Factor Score: 3 Thrombosis Risk Factor Assessment Level: Moderate Risk
[2018-01-10 14:49] VITALS: BP 149/95; PULSE 80; RESP 97; TEMP 97.5
== END 2018-01-10 14:59 | disposition home health service (06) | DRG 197 ==
LOC: EC 23:47 → 4MS4W 01-09 01:59 → OBSVTOIN 01-09 09:08
PROVIDERS: ADMIT Hospitalist; ATTEND Hospitalist
DX: J84.112 Idiopathic pulmonary fibrosis (principal); E66.2 Morbid (severe) obesity with alveolar hypoventilation; Z68.43 Body mass index [BMI] 50.0-59.9, adult; J70.2 Acute drug-induced interstitial lung disorders; T46.1X5A Adverse effect of calcium-channel blockers, initial encounter; B34.9 Viral infection, unspecified; I10 Essential (primary) hypertension; G47.30 Sleep apnea, unspecified; Z79.899 Other long term (current) drug therapy; Z88.6 Allergy status to analgesic agent; Z83.3 Family history of diabetes mellitus; R60.0 Localized edema; K08.89 Other specified disorders of teeth and supporting structures; F41.9 Anxiety disorder, unspecified
CPT/HCPCS: 36415; 71046; 71275; 80048; 80053; 82550; 82553; 83605; 83735; 83880; 84484; 85025; 85027; 85379; 85610; 85730; 87040; 87070; 87205; 87502; 93005; 93306; 94640; 94760; 96365; 96375; 99285

== ENCOUNTER → 2021-07-05 | Outpatient (CLI) | payer OTHER ==
--- NOTE | 2021-07-05 11:02 | XR ---
EXAMINATION TYPE: XR chest 2V DATE OF EXAM: 07/05/2021 COMPARISON: 01/10/2018 HISTORY: 51-year-old male R06.02, shortness of breath TECHNIQUE: frontal and lateral views FINDINGS: Heart normal size. Aorta and pulmonary vasculature within normal limits. Mild increased interstitial density in the retrocardiac region. Otherwise, no consolidation or pleural effusion. IMPRESSION: Some subtle increased interstitial density in the retrocardiac left base. Area of atelectasis versus small infiltrate are considerations.
== END | disposition home or self-care (01) ==
LOC: RADXRMAIN 10:16
PROVIDERS: ATTEND Family Medicine
DX: J98.4 Other disorders of lung (principal)
CPT/HCPCS: 71046

== ENCOUNTER → 2021-07-29 | Outpatient (CLI) | payer OTHER ==
[2021-07-29 11:43] LABS: African American GFR (CKD) >90 (>60 ml/min/1.73 sqM); Blood Urea Nitrogen 14 mg/dL (9-20); Non-African American GFR(CKD) >90 (>60 ml/min/1.73 sqM)
--- NOTE | 2021-07-29 12:53 | CT ---
EXAMINATION TYPE: CT chest w con DATE OF EXAM: 07/29/2021 COMPARISON: CTA chest January 09, 2018. Chest x-ray July 05, 2021 HISTORY: SOB, abnormal recent x-ray. CT DLP: 1661.8 mGycm. Automated Exposure Control for Dose Reduction was Utilized. TECHNIQUE: CT scan of the thorax is performed following with IV Contrast, patient injected with 100 mL of Isovue 300. FINDINGS: LUNGS: The lungs remain grossly clear, there is no concerning parenchymal mass or nodule identified. No suspicious focal infiltrate with particular attention to the retrocardiac region at area of concer n on recent x-ray. Low lung volumes redemonstrated. There is no pleural effusion or pneumothorax see n. The tracheobronchial tree is patent. MEDIASTINUM: There are no greater than 1 cm hilar or mediastinal lymph nodes. No cardiomegaly or pe ricardial effusion is seen. Mediastinal prominence corresponds to lipomatosis similar to prior. OTHER: Small degree of subareolar gynecomastia right greater than left is redemonstrated. Visualized liver is low dense consistent with diffuse fatty infiltration. Slight underlying scoliotic curvature . Moderate multilevel spurring in the spine. IMPRESSION: No significant acute pulmonary process. Low lung volumes redemonstrated.
== END | disposition home or self-care (01) ==
LOC: RADCTMAIN 09:51
PROVIDERS: ATTEND Family Medicine
DX: R91.8 Other nonspecific abnormal finding of lung field (principal)
CPT/HCPCS: 82565; 84520; 71260; 36415; Q9967

== ENCOUNTER 2021-12-18 18:39 | Emergency (ER) | payer OTHER ==
[2021-12-18 18:44] VITALS: BP 175/115; PULSE 84; RESP 20; TEMP 98.3
--- NOTE | 2021-12-18 19:10 | XR ---
EXAMINATION TYPE: XR Hip Complete LT DATE OF EXAM: 12/18/2021 COMPARISON: NONE HISTORY: Pain TECHNIQUE: 2 views FINDINGS: There is acetabular spurring. Proximal femur is intact. I see no fracture nor dislocation. IMPRESSION: There is some mild osteoarthritis. No fracture.
[2021-12-18] MEDS ORDERED: ACETAMINOPHEN TAB 500 MG TAB PO STA (20:22)
--- NOTE | 2021-12-18 20:32 | ED ---
Extremity Problem HPI - General Chief complaint: Extremity Problem,Nontraumatic Stated complaint: Mass on LT hip Time Seen by Provider: 12/18/21 20:16 Source: patient, RN notes reviewed Mode of arrival: ambulatory Limitations: no limitations - History of Present Illness Initial comments: This is a pleasant 52-year-old male with a history of hypertension and type 2 diabetes mellitus. He presents to the emergency department today complaining of pain in his left buttock area. States has been going on for a few days. Patient states only is really bothering him with movement and ambulation. Had an x-ray of his left hip were ordered by the provider in triage. Patient does not recall any injury. Is able to ambulate. No problems with bowel movements or urination. No other orthopedic complaints. No headache, no fever or chills, no changes in vision or hearing, no sore throat or difficulty with speech, no neck pain, no chest pain or shortness of breath, no abdominal pain, no nausea or vomiting, no changes in urination or bowel movements, no numbness or tingling, no extremity pain, no skin rashes or lesions. Patient is on double therapy for hypertension and states she's been taking his medication appropriately. Gross some eye. - Related Data Home Medications Medication Instructions Recorded Confirmed amLODIPine BESYLATE [Norvasc] 10 mg PO DAILY 01/08/18 01/09/18 cloNIDine HCL [Catapres] 0.2 mg PO BID 01/09/18 01/09/18 Previous Rx's Medication Instructions Recorded Albuterol Inhaler (Mhu) [Ventolin 1 - 2 puff INHALATION Q6HR PRN #1 01/09/18 Hfa Inhaler (Mhu)] inhaler Cefuroxime Axetil [Ceftin] 500 mg PO BID #14 tab 01/09/18 ALPRAZolam [Xanax] 0.25 mg PO TID PRN 3 Days #9 tab 01/10/18 Furosemide [Lasix] 20 mg PO DAILY #30 tab 01/10/18 Acetaminophen [Tylenol] 500 mg PO Q4-6H PRN #24 tab 12/18/21 Cyclobenzaprine [Flexeril] 10 mg PO TID PRN #20 tab 12/18/21 Allergies Allergy/AdvReac Type Severity Reaction Status Date / Time aspirin Allergy Swelling Verified 12/18/21 18:44 Review of Systems ROS Statement: Those systems with pertinent positive or pertinent negative responses have been documented in the HPI. ROS Other: All systems not noted in ROS Statement are negative. Past Medical History Past Medical History: Hypertension, Sleep Apnea/CPAP/BIPAP Additional Past Medical History / Comment(s): 10/06/14 Pt presented to [facility] ER with swelling of the tongue and throat. Prior to going to bed last nite pt noticed fromt lower tooth ache. Other HX: Morbid obesity, sleep apnea with CPAP History of Any Multi-Drug Resistant Organisms: None Reported Past Surgical History: No Surgical Hx Reported Additional Past Anesthesia/Blood Transfusion Reaction / Comment(s): Pt has never recieved blood. Past Psychological History: No Psychological Hx Reported Smoking Status: Never smoker Past Alcohol Use History: Rare Past Drug Use History: None Reported - Past Family History Father Family Medical History: Diabetes Mellitus Mother Family Medical History: Diabetes Mellitus General Exam - General Exam Comments Initial Comments: Obese 51-year-old male in no acute distress. Patient does not appear to be ill or toxic. Limitations: no limitations General appearance: alert, in no apparent distress, obese Head exam: Present: atraumatic, normocephalic, normal inspection Eye exam: Present: normal appearance, PERRL, EOMI. Absent: scleral icterus, conjunctival injection, periorbital swelling ENT exam: Present: normal exam, mucous membranes moist Neck exam: Present: normal inspection, full ROM. Absent: tenderness, meningismus, lymphadenopathy Respiratory exam: Present: normal lung sounds bilaterally. Absent: respiratory distress, wheezes, rales, rhonchi, stridor Cardiovascular Exam: Present: regular rate, normal rhythm, normal heart sounds. Absent: systolic murmur, diastolic murmur, rubs, gallop, clicks GI/Abdominal exam: Present: soft, normal bowel sounds. Absent: distended, tenderness, guarding, rebound, rigid Extremities exam: Present: normal inspection, full ROM, tenderness (Patient has tenderness to the belly of the left gluteus eliud. There is no overlying erythema. No palpable abnormality. No rash or lesion. Full range of motion. Remainder of the musculoskeletal examination is benign.), normal capillary refill. Absent: pedal edema, joint swelling, calf tenderness Back exam: Present: normal inspection Neurological exam: Present: alert, oriented X3, CN II-XII intact Psychiatric exam: Present: normal affect, normal mood Skin exam: Present: warm, dry, intact, normal color. Absent: rash Course Vital Signs 12/18/21 18:41 Temperature 98.3 F Pulse Rate 84 Respiratory 20 Rate Blood Pressure 175/115 O2 Sat by Pulse 98 Oximetry Medical Decision Making - Medical Decision Making -There are no red flags for concerning back pathology. In fact, patient symptomology is relegated to the left gluteus eliud area. No evidence of cauda equina syndrome. No pain at rest. Pain only exacerbated with movement and ambulation. No bony pathology or tenderness. Suspect the marquez porter has a mild strain of the gluteus eliud muscle. We'll treat conservatively. Patient was found be quite hypertensive here in the ER. Systolic of 170s over 115. Patient actually stating that this is better than his most recent blood pressures. Patient is on double therapy with clonidine and amlodipine. Patient also taking furosemide. We'll have the patient follow-up with his regular ysician regarding blood pressure. The patient is asymptomatic regarding this. Discussed using dqeq-nwe-vvyxaso anti-inflammatory medication, acetaminophen, and muscle relaxers. Patient voiced understanding. All questions answered. Patient was told to return to the ER for any signs or symptoms worsen. Told to return immediately if any other problems arise. All questions answered. Treatment plan discussed. Patient in agreement Every effort has been made to ensure accuracy of this dictation. However, due to the limitations of electronic medical records and dictation devices, errors in charting still occur. - Radiology Data Radiology results: report reviewed, image reviewed Disposition Clinical Impression: Muscle strain, Uncontrolled hypertension Narrative: Muscle strain, left gluteus Disposition: HOME SELF-CARE Condition: Good Instructions (If sedation given, give patient instructions): Muscle Strain (ED), Hypertension (ED) Additional Instructions: Make sure you follow-up with your regular physician regarding her blood pressure. Call in the morning for follow-up. Conservative therapy for the muscle strain as directed. You can continue the [id number]-[id number] ibuprofen. Acetaminophen and cyclobenzaprine as directed. He can also use warm compresses to the affected area for 10-15 minutes at a time 4 times daily. Follow-up with your regular physician as directed. Return to the ER immediately if any symptoms worsen, new symptoms arise, or any other problems develop. Is patient prescribed a controlled substance at d/c from ED?: No Referrals: Filiberto Morris DO [Primary Care Provider] - 12/19/21 9:00 am Time of Disposition: 20:31
== END 2021-12-18 20:47 | disposition home or self-care (01) ==
LOC: EC 18:39
DX: S76.012A Strain of muscle, fascia and tendon of left hip, initial encounter (principal); I10 Essential (primary) hypertension; X58.XXXA Exposure to other specified factors, initial encounter
CPT/HCPCS: 73502; 99284

== ENCOUNTER → 2022-06-14 | Outpatient (CLI) | payer OTHER ==
--- NOTE | 2022-06-14 10:52 | XR ---
EXAMINATION TYPE: XR lumbar spine 2 or 3V DATE OF EXAM: 06/14/2022 COMPARISON: 08/29/2017 HISTORY: Low back injury, fall TECHNIQUE: 3 view lumbar spine FINDINGS: There are 5 lumbar-type vertebral bodies. Pedicles are intact. Spondylosis is present. Disc heights are preserved. Vertebral body heights are preserved. IMPRESSION: 1. Degenerative changes lumbar spine. 2. No acute abnormality evident. Follow-up with MRI can be performed as clinically indicated.
== END | disposition home or self-care (01) ==
LOC: RADXRMAIN 10:11
PROVIDERS: ATTEND Nurse Practitioner Family
DX: M47.816 Spondylosis without myelopathy or radiculopathy, lumbar region (principal)
CPT/HCPCS: 72100

== ENCOUNTER → 2022-06-19 | Outpatient (CLI) | payer OTHER ==
--- NOTE | 2022-06-20 04:17 | MR ---
EXAMINATION TYPE: MR lumbar spine wo con DATE OF EXAM: 06/19/2022 COMPARISON: None HISTORY: Lower back pain x 2 weeks, S/P fall. Multiplanar multiecho imaging of the lumbar spine without contrast. There is a second-degree L5-S1 spondylolisthesis with bilateral L5 spondylolysis. There is narrowing of the spinal canal at L5-S1 due to the subluxation and facet arthropathy. No compression fracture. T here is degenerative disc space narrowing at L4-5 and L5-S1. There is posterior disc bulging at L3-4 and L4-5. There is no lumbar paraspinal mass. Sacroiliac joints are intact. There is bilateral narrowing of the neural foramina at L4-5 and L5-S1 due to the disc bulging and facet arthropathy. No focal bone destr uction. The sacroiliac joints are intact. No lumbar paraspinal mass. IMPRESSION: Second degree L5-S1 spondylolisthesis. Neural foraminal narrowing bilaterally at L4-5 and L5-S1. Mild spinal stenosis at L5-S1. Posterior disc bulging at L3-4 and L4-5.
== END | disposition home or self-care (01) ==
LOC: RADMRIMAIN 20:30
PROVIDERS: ATTEND Family Medicine
DX: M43.17 Spondylolisthesis, lumbosacral region (principal); M48.061 Spinal stenosis, lumbar region without neurogenic claudication; M51.26 Other intervertebral disc displacement, lumbar region
CPT/HCPCS: 72148

== ENCOUNTER 2022-09-18 16:16 | Emergency (ER) | payer OTHER ==
[2022-09-18 16:40] VITALS: TEMP 97.7
[2022-09-18 16:59] VITALS: BP 136/91; PULSE 100; RESP 18
--- NOTE | 2022-09-18 17:14 | XR ---
EXAMINATION TYPE: XR chest 2V DATE OF EXAM: 09/18/2022 COMPARISON: 07/05/2021 HISTORY: Cough TECHNIQUE: 2 view FINDINGS: Heart is normal. Lungs are clear. Diaphragm is normal. Bony thorax is intact. IMPRESSION: Normal chest. No adverse change.
[2022-09-18] MEDS ORDERED: IPRATROPIUM-ALBUTEROL 3 ML NEB INHALATION STA (17:31)
[2022-09-18] MEDS ORDERED: predniSONE 50 MG TAB PO STA (17:31)
--- NOTE | 2022-09-18 17:40 | ED ---
ENT HPI - General Chief complaint: Upper Respiratory Infection Stated complaint: Cough Time Seen by Provider: 09/18/22 16:42 Source: patient, RN notes reviewed Mode of arrival: ambulatory Limitations: no limitations - History of Present Illness Initial comments: This is a 52-year-old male who presents to the emergency department for coughing and congestion. Symptoms have been present for the last week. Reports associated fevers and chills. He does have sleep apnea but denies any history of asthma or COPD. He has an inhaler that he uses intermittently, which he states does offer minor relief. He has tried hniq-vmu-renrilj cough medicine as well, which he also states is helpful. Denies any sick contacts, chest pain, or difficulty breathing. Denies any sore throat, dyspnea, chest pain, palpitations, abdominal pain, nausea, vomiting, diarrhea, back pain, or headaches. MD complaint: other (cough, congestion) Onset/Timin -: week(s) - Related Data Home Medications Medication Instructions Recorded Confirmed amLODIPine BESYLATE [Norvasc] 10 mg PO DAILY 01/08/18 01/09/18 cloNIDine HCL [Catapres] 0.2 mg PO BID 01/09/18 01/09/18 Previous Rx's Medication Instructions Recorded Albuterol Inhaler [Ventolin Hfa 1 - 2 puff INHALATION Q6HR PRN #1 01/09/18 Inhaler] inhaler cefUROXime axetiL [Ceftin] 500 mg PO BID #14 tab 01/09/18 ALPRAZolam [Xanax] 0.25 mg PO TID PRN 3 Days #9 tab 01/10/18 Furosemide [Lasix] 20 mg PO DAILY #30 tab 01/10/18 Acetaminophen [Tylenol] 500 mg PO Q4-6H PRN #24 tab 12/18/21 Cyclobenzaprine [Flexeril] 10 mg PO TID PRN #20 tab 12/18/21 Azithromycin [Zithromax] 250 mg PO DIRECTED 5 Days #6 tab 09/18/22 predniSONE 50 mg PO DAILY 4 Days #4 tab 09/18/22 Allergies Allergy/AdvReac Type Severity Reaction Status Date / Time aspirin Allergy Swelling Verified 12/18/21 18:44 Review of Systems ROS Statement: Those systems with pertinent positive or pertinent negative responses have been documented in the HPI. ROS Other: All systems not noted in ROS Statement are negative. Past Medical History Past Medical History: Hypertension, Sleep Apnea/CPAP/BIPAP Additional Past Medical History / Comment(s): 10/06/14 Pt presented to [facility] ER with swelling of the tongue and throat. Prior to going to bed last nite pt noticed fromt lower tooth ache. Other HX: Morbid obesity, sleep apnea with CPAP History of Any Multi-Drug Resistant Organisms: None Reported Past Surgical History: No Surgical Hx Reported Additional Past Anesthesia/Blood Transfusion Reaction / Comment(s): Pt has never recieved blood. Past Psychological History: No Psychological Hx Reported Smoking Status: Never smoker Past Alcohol Use History: Rare Past Drug Use History: None Reported - Past Family History Father Family Medical History: Diabetes Mellitus Mother Family Medical History: Diabetes Mellitus General Exam Limitations: no limitations General appearance: alert, in no apparent distress Head exam: Present: atraumatic, normocephalic, normal inspection Respiratory exam: Present: normal lung sounds bilaterally. Absent: respiratory distress, wheezes, rales, rhonchi, stridor Cardiovascular Exam: Present: regular rate, normal rhythm, normal heart sounds. Absent: systolic murmur, diastolic murmur, rubs, gallop, clicks Neurological exam: Present: alert, oriented X3, CN II-XII intact Psychiatric exam: Present: normal affect, normal mood Skin exam: Present: warm, dry, intact, normal color. Absent: rash Course Vital Signs 09/18/22 09/18/22 09/18/22 16:37 16:58 18:01 Temperature 97.7 F Pulse Rate 108 H 100 100 Respiratory 20 18 Rate Blood Pressure 157/99 136/91 O2 Sat by Pulse 97 96 Oximetry 09/18/22 18:10 Temperature Pulse Rate 100 Respiratory Rate Blood Pressure O2 Sat by Pulse Oximetry Medical Decision Making - Medical Decision Making This is a 52-year-old male who presents to the emergency department for coughing and congestion. Was pt. sent in by a medical professional or institution? @ -No Did you speak to anyone other than the patient for history? @ -No Did you review nursing and triage notes? @ -Agree, accurate with regards to the patient's symptoms. Were old charts reviewed? @ -No Differential Diagnosis? @ -Influenza, Covid, allergic rhinitis, GERD, pneumonia, bronchitis, COPD, viral pharyngitis, streptococcal pharyngitis, this is not meant to be an all- inclusive list. X-rays interpreted by me (1pt min.)? @ -Chest x-ray obtained, my interpretation reveals no localized consolidations or infiltrates. What testing was considered but not performed? (CT, X-rays, U/S, labs)? Why? @ -None What meds were considered but not given? Why? @ -None Did you discuss the management of the patient with other professionals? @ -No Did you reconcile home meds? @ -No Was smoking cessation discussed for >3mins.? @ -No Was critical care preformed (if so, how long)? @ -No Were there social determinants of health that impacted care today? How? (Homelessness, low income, unemployed, alcoholism, drug addiction, transportation, low edu. Level, literacy, decrease access to med. care, [facility], rehab)? @ -No Was there de-escalation of care discussed even if they declined? (Discuss DNR or withdrawal of care, Hospice)? @ -No What co-morbidities impacted this encounter? (DM, HTN, Smoking, COPD, CAD, Cancer, CVA, Hep., AIDS, mental health diagnosis, sleep apnea, morbid obesity)? @ -Sleep apnea, morbid obesity, HTN Was patient admitted / discharged? @ -Discharged. Chest x-ray reveals no acute process. Patient negative for Covid, influenza, and RSV. He received a dose of prednisone and a DuoNeb breathing treatment. States the DuoNeb breathing treatment was beneficial. Given that symptoms have been present for the last week, will start him on antibiotics. Rx for azithromycin provided with dosing instructions reviewed. Additional 4 days of prednisone prescribed as well. Drug Therapy requiring intensive monitoring for toxicity (Heparin, Nitro, Insulin, Cardizem)? @ -None Were any procedures done? @ -None Diagnosis/symptom? @ -bronchitis Acute, or Chronic, or Acute on Chronic? @ -acute Uncomplicated (without systemic symptoms) or Complicated (systemic symptoms)? @ -uncomplicated Side effects of treatment? @ -None Exacerbation, Progression, or Severe Exacerbation] @ -Not applicable Poses a threat to life or bodily function? @ -May impact his ability to function if symptoms become severe enough. Return precautions reviewed in depth, the patient is instructed to return to the emergency department with any new, worsening, or concerning symptoms. Patient verbalized understanding. This case was discussed in detail with the attending ED physician. Presentation, findings, and treatment plan discussed in detail as well. - Lab Data Lab Results 09/18/22 Range/Units 16:57 Influenza Type A (PCR) Not Detected (Not Detectd) Influenza Type B (PCR) Not Detected (Not Detectd) RSV (PCR) Not Detected (Not Detectd) SARS-CoV-2 (PCR) Not Detected (Not Detectd) - Radiology Data Radiology results: report reviewed, image reviewed Disposition Clinical Impression: Bronchitis Disposition: HOME SELF-CARE Instructions (If sedation given, give patient instructions): Acute Bronchitis (ED) Additional Instructions: Return to the emergency department with any new, worsening, or concerning symptoms. Take the antibiotic daily for the next 4 days, with your first dose starting tomorrow, because you received a dose here. Take the cough medicine you have at home and use your inhaler every 4-6 hours as needed for coughing and shortness of breath. Follow up with your primary care provider in 1-2 days. Prescriptions: predniSONE 50 mg PO DAILY 4 Days #4 tab Azithromycin [Zithromax] 250 mg PO DIRECTED 5 Days #6 tab Is patient prescribed a controlled substance at d/c from ED?: No Referrals: Filiberto Morris DO [Primary Care Provider] - 1-2 days
== END 2022-09-18 18:34 | disposition home or self-care (01) ==
LOC: EC 16:16
DX: J40 Bronchitis, not specified as acute or chronic (principal); I10 Essential (primary) hypertension; Z88.6 Allergy status to analgesic agent; Z79.899 Other long term (current) drug therapy; Z20.822 Contact with and (suspected) exposure to COVID-19
CPT/HCPCS: 94640; 87636; 71046; 99283; J7512

== ENCOUNTER 2024-06-08 12:44 | Emergency (ER) | payer OTHER ==
[2024-06-08 12:54] VITALS: RESP 16; TEMP 97.6
--- NOTE | 2024-06-08 13:06 | ED ---
Fall HPI - General Chief Complaint: Fall Stated Complaint: Fall Time Seen by Provider: 06/08/24 12:54 Source: patient, EMS, RN notes reviewed Mode of arrival: EMS Limitations: no limitations - History of Present Illness Initial Comments: 54-year-old male presented to ER via EMS with a chief complaint of a fall. Patient states he was attempting to go to the bathroom when he started to feel dizzy and fell. He describes his dizziness as the room is spinning. He does not believe he hit his head or lost consciousness. No blood thinning medications. He states he has been feeling "ill" lately. He does report a recent runny nose. He denies any fevers, cough, congestion, chest pain, shortness of breath, abdominal pain, diarrhea or constipation, urinary complaints or peripheral edema. - Related Data Home Medications Medication Instructions Recorded Confirmed amLODIPine BESYLATE [Norvasc] 10 mg PO DAILY 01/08/18 01/09/18 cloNIDine HCL [Catapres] 0.2 mg PO BID 01/09/18 01/09/18 Previous Rx's Medication Instructions Recorded Albuterol Inhaler [Ventolin Hfa 1 - 2 puff INHALATION Q6HR PRN #1 01/09/18 Inhaler] inhaler cefUROXime axetiL [Ceftin] 500 mg PO BID #14 tab 01/09/18 ALPRAZolam [Xanax] 0.25 mg PO TID PRN 3 Days #9 tab 01/10/18 Furosemide [Lasix] 20 mg PO DAILY #30 tab 01/10/18 Acetaminophen [Tylenol] 500 mg PO Q4-6H PRN #24 tab 12/18/21 Cyclobenzaprine [Flexeril] 10 mg PO TID PRN #20 tab 12/18/21 Azithromycin [Zithromax] 250 mg PO DIRECTED 5 Days #6 tab 09/18/22 predniSONE 50 mg PO DAILY 4 Days #4 tab 09/18/22 Allergies Allergy/AdvReac Type Severity Reaction Status Date / Time aspirin Allergy Swelling Verified 06/08/24 12:54 Review of Systems ROS Statement: Those systems with pertinent positive or pertinent negative responses have been documented in the HPI. ROS Other: All systems not noted in ROS Statement are negative. Past Medical History Past Medical History: Hypertension, Sleep Apnea/CPAP/BIPAP Additional Past Medical History / Comment(s): 10/06/14 Pt presented to [facility] ER with swelling of the tongue and throat. Prior to going to bed last nite pt noticed fromt lower tooth ache. Other HX: Morbid obesity, sleep apnea with CPAP History of Any Multi-Drug Resistant Organisms: None Reported Past Surgical History: No Surgical Hx Reported Additional Past Anesthesia/Blood Transfusion Reaction / Comment(s): Pt has never recieved blood. Past Psychological History: No Psychological Hx Reported Smoking Status: Never smoker Past Alcohol Use History: Rare Past Drug Use History: None Reported - Past Family History Father Family Medical History: Diabetes Mellitus Mother Family Medical History: Diabetes Mellitus General Exam Limitations: no limitations General appearance: alert, in no apparent distress Head exam: Present: atraumatic, normocephalic, normal inspection Eye exam: Present: normal appearance, PERRL, EOMI. Absent: scleral icterus, conjunctival injection, periorbital swelling ENT exam: Present: normal exam, mucous membranes moist Respiratory exam: Present: normal lung sounds bilaterally. Absent: respiratory distress, wheezes, rales, rhonchi, stridor Cardiovascular Exam: Present: regular rate, normal rhythm, normal heart sounds. Absent: systolic murmur, diastolic murmur, rubs, gallop, clicks GI/Abdominal exam: Present: soft, normal bowel sounds. Absent: distended, tenderness, guarding, rebound, rigid Extremities exam: Present: normal inspection, full ROM, normal capillary refill. Absent: tenderness, pedal edema, joint swelling, calf tenderness Neurological exam: Present: alert, oriented X3, CN II-XII intact Skin exam: Present: warm, dry, intact, normal color. Absent: rash Course Vital Signs 06/08/24 06/08/24 06/08/24 12:46 15:00 16:02 Temperature 97.6 F Pulse Rate 63 79 61 Respiratory 16 16 16 Rate Blood Pressure 165/103 130/75 164/100 O2 Sat by Pulse 98 99 100 Oximetry 06/08/24 17:47 Temperature Pulse Rate 77 Respiratory 16 Rate Blood Pressure 163/102 O2 Sat by Pulse 98 Oximetry Medical Decision Making - Medical Decision Making Was pt. sent in by a medical professional or institution (, PA, LEATHER COVERER, urgent care, hospital, or skilled nursing...) When possible be specific @ -No Did you speak to anyone other than the patient for history (EMS, parent, family, police, friend...)? What history was obtained from this source @ -No Did you review nursing and triage notes (agree or disagree)? Why? @ -I reviewed and agree with nursing and triage notes Were old charts reviewed (outside hosp., previous admission, EMS record, old EKG, old radiological studies, urgent care reports/EKG's, skilled nursing records)? Report findings @ -No old charts were reviewed Differential Diagnosis (chest pain, altered mental status, abdominal pain women, abdominal pain men, vaginal bleeding, weakness, fever, dyspnea, syncope, hea dache, dizziness, GI bleed, back pain, seizure, CVA, palpatations, mental health, musculoskeletal)? @ -Fracture, dislocation, contusion, hematoma, intracranial hemorrhage, concussion, abrasion, laceration this list does not like to be all-inclusive EKG interpreted by me (3pts min.). @ -As above X-rays interpreted by me (1pt min.). @ -None done CT interpreted by me (1pt min.). @ -CT brain negative for acute process. U/S interpreted by me (1pt. min.). @ -None done What testing was considered but not performed or refused? (CT, X-rays, U/S, labs)? Why? @ -None What meds were considered but not given or refused? Why? @ -None Did you discuss the management of the patient with other professionals (professionals i.e. , PA, LEATHER COVERER, lab, RT, psych nurse, social worker delinquency prevention, waterproof coating machine tender, teacher, tactical deception plans officer, director of casework)? Give summary @ -No Was smoking cessation discussed for >3mins.? @ -No Was critical care preformed (if so, how long)? @ -No Were there social determinants of health that impacted care today? How? (Homelessness, low income, unemployed, alcoholism, drug addiction, transporta tion, low edu. Level, literacy, decrease access to med. care, alf, rehab)? @ -No Was there de-escalation of care discussed even if they declined (Discuss DNR or withdrawal of care, Hospice)? DNR status @ -No What co-morbidities impacted this encounter? (DM, HTN, Smoking, COPD, CAD, Cancer, CVA, ARF, Chemo, Hep., AIDS, mental health diagnosis, sleep apnea, morbid obesity)? @ -None Was patient admitted / discharged? Hospital course, mention meds given and route, prescriptions, significant lab abnormalities, going to OR and other pertinent info. @ -54-year-old male presented to ER with a chief complaint of dizziness and fall. History and physical exam completed. Vitals upon arrival remarkable for temperature 97.6, heart rate 63, respiratory rate 16, blood pressure 165/103 Oxy gen saturation 90% on room air. Patient in no signs of acute distress nontoxic- appearing. Patient does have a malodorous urine smell on examination. Exam benign. No acute neurologic findings on exam. GCS 15. Laboratory studies obtained unremarkable. Initial troponin less than 0.012. Urinalysis showing 4+ glucose which is likely related to patient's diabetes. Viral swabs negative. CT brain negative. Chest x-ray pending. 54-year-old male presented to the ER with a chief complaint of a fall. History and physical exam completed. Vitals within normal limits. Patient no signs of acute distress and nontoxic- appearing. Exam unremarkable. Bilateral upper and lower extremities neurovas cular intact. No focal point tenderness. No acute neurological findings on exam. Laboratory studies obtained unremarkable. Troponin undetectable. Urinalysis showing 4+ glucose patient is diabetic. Viral swabs negative. Chest x-ray and CT brain negative for acute process. Symptoms believed to be vertigo in nature. On reevaluation, patient resting comfortably no signs of acute distress. Patient reporting improvement of symptoms. Patient is hypertensive throughout ER stay systolic 160s to 100s. Patient states he did not take his blood pressure medication today. I advised patient to take medications as prescribed when he gets home. Patient stable for discharge at this time. Return parameters discussed. Patient discharged stable condition. Patient verbally expressed understanding agree with care plan. Case discussed with ED attending, Dr. Chavez. Undiagnosed new problem with uncertain prognosis? @ -No Drug Therapy requiring intensive monitoring for toxicity (Heparin, Nitro, Insulin, Cardizem)? @ -No Were any procedures done? @ -No Diagnosis/symptom? @ -Dizziness Acute, or Chronic, or Acute on Chronic? @ -Acute Uncomplicated (without systemic symptoms) or Complicated (systemic symptoms)? @ -Uncomplicated Side effects of treatment? @ -No Exacerbation, Progression, or Severe Exacerbation? @ -No Poses a threat to life or bodily function? How? (Chest pain, [place], [place], pneumonia, PE, COPD, DKA, ARF, appy, cholecystitis, CVA, Diverticulitis, Homicidal, Suici ang, threat to staff... and all critical care pts) @ -No - Lab Data Result diagrams: 06/08/24 14:04 06/08/24 14:04 Lab Results 06/08/24 06/08/24 06/08/24 Range/Units 14:04 14:04 14:04 WBC 8.8 (3.8-10.6) k/uL RBC 5.69 (4.30-5.90) m/uL Hgb 16.4 (13.0-17.5) gm/dL Hct 50.4 (39.0-53.0) % MCV 88.5 (80.0-100.0) fL MCH 28.8 (25.0-35.0) pg MCHC 32.6 (31.0-37.0) g/dL RDW 13.5 (11.5-15.5) % Plt Count 268 (150-450) k/uL MPV 6.7 Neutrophils % 81 % Lymphocytes % 12 % Monocytes % 4 % Eosinophils % 1 % Basophils % 0 % Neutrophils # 7.1 (1.3-7.7) k/uL Lymphocytes # 1.1 (1.0-4.8) k/uL Monocytes # 0.4 (0-1.0) k/uL Eosinophils # 0.1 (0-0.7) k/uL Basophils # 0.0 (0-0.2) k/uL PT 10.2 (10.0-12.5) sec INR 0.9 (<1.2) APTT 24.3 (22.0-30.0) sec Sodium 136 L (137-145) mmol/L Potassium 4.3 (3.5-5.1) mmol/L Chloride 105 (98-107) mmol/L Carbon Dioxide 22 (22-30) mmol/L Anion Gap 9 mmol/L BUN 17 (9-20) mg/dL Creatinine 0.81 (0.66-1.25) mg/dL Est GFR (CKD-EPI)AfAm >90 (>60 ml/min/1.73 sqM) Est GFR (CKD-EPI)NonAf >90 (>60 ml/min/1.73 sqM) Glucose 258 H (74-99) mg/dL Calcium 9.7 (8.4-10.2) mg/dL Total Bilirubin 0.8 (0.2-1.3) mg/dL AST 21 (17-59) U/L ALT 21 (4-49) U/L Alkaline Phosphatase 90 (38-126) U/L Troponin I (0.000-0.034) ng/mL Total Protein 7.3 (6.3-8.2) g/dL Albumin 4.1 (3.5-5.0) g/dL Urine Color Urine Appearance (Clear) Urine pH (5.0-8.0) Ur Specific [place] (1.001-1.035) Urine Protein (Negative) Urine Glucose (UA) (Negative) Urine Ketones (Negative) Urine Blood (Negative) Urine Nitrite (Negative) Urine Bilirubin (Negative) Urine Urobilinogen (<2.0) mg/dL Ur Leukocyte Esterase (Negative) Influenza Type A (PCR) (Not Detectd) Influenza Type B (PCR) (Not Detectd) RSV (PCR) (Not Detectd) SARS-CoV-2 (PCR) (Not Detectd) 06/08/24 06/08/24 06/08/24 Range/Units 14:04 14:04 14:47 WBC (3.8-10.6) k/uL RBC (4.30-5.90) m/uL Hgb (13.0-17.5) gm/dL Hct (39.0-53.0) % MCV (80.0-100.0) fL MCH (25.0-35.0) pg MCHC (31.0-37.0) g/dL RDW (11.5-15.5) % Plt Count (150-450) k/uL MPV Neutrophils % % Lymphocytes % % Monocytes % % Eosinophils % % Basophils % % Neutrophils # (1.3-7.7) k/uL Lymphocytes # (1.0-4.8) k/uL Monocytes # (0-1.0) k/uL Eosinophils # (0-0.7) k/uL Basophils # (0-0.2) k/uL PT (10.0-12.5) sec INR (<1.2) APTT (22.0-30.0) sec Sodium (137-145) mmol/L Potassium (3.5-5.1) mmol/L Chloride (98-107) mmol/L Carbon Dioxide (22-30) mmol/L Anion Gap mmol/L BUN (9-20) mg/dL Creatinine (0.66-1.25) mg/dL Est GFR (CKD-EPI)AfAm (>60 ml/min/1.73 sqM) Est GFR (CKD-EPI)NonAf (>60 ml/min/1.73 sqM) Glucose (74-99) mg/dL Calcium (8.4-10.2) mg/dL Total Bilirubin (0.2-1.3) mg/dL AST (17-59) U/L ALT (4-49) U/L Alkaline Phosphatase (38-126) U/L Troponin I <0.012 (0.000-0.034) ng/mL Total Protein (6.3-8.2) g/dL Albumin (3.5-5.0) g/dL Urine Color Light Yellow Urine Appearance Clear (Clear) Urine pH 6.0 (5.0-8.0) Ur Specific [place] 1.027 (1.001-1.035) Urine Protein Trace H (Negative) Urine Glucose (UA) 4+ H (Negative) Urine Ketones Negative (Negative) Urine Blood Negative (Negative) Urine Nitrite Negative (Negative) Urine Bilirubin Negative (Negative) Urine Urobilinogen <2.0 (<2.0) mg/dL Ur Leukocyte Esterase Negative (Negative) Influenza Type A (PCR) Not Detected (Not Detectd) Influenza Type B (PCR) Not Detected (Not Detectd) RSV (PCR) Not Detected (Not Detectd) SARS-CoV-2 (PCR) Not Detected (Not Detectd) - EKG Data -: EKG Interpreted by Me EKG Comments: EKG taken at 14: 02 showing sinus rhythm with a first-degree AV block. Right bundle branch block. Inverted T waves in inferior lateral leads. No acute ST segment elevations or depressions. Ventricular rate 69, DE interval 212, QRS duration 128, QT/QTc 398/417. - Radiology Data Radiology results: report reviewed, image reviewed Disposition Clinical Impression: Dizziness Disposition: HOME SELF-CARE Condition: Stable Instructions (If sedation given, give patient instructions): Fall Prevention for Older Adults (ED) Additional Instructions: Follow-up with PCP next 1 to 2 days. Return to the ER for any new or worsening concerns. Is patient prescribed a controlled substance at d/c from ED?: No Referrals: Filiberto Morris DO [Primary Care Provider] - 1-2 days Time of Disposition: 17:28
[2024-06-08 14:11] LABS: Basophils % (A) 0 %; Eosinophils # (A) 0.1 k/uL (0-0.7); Eosinophils % (A) 1 %; HCT 50.4 % (39.0-53.0); HGB 16.4 gm/dL (13.0-17.5); Lymphocytes # (A) 1.1 k/uL (1.0-4.8); Lymphocytes % (A) 12 %; MCH 28.8 pg (25.0-35.0); MCHC 32.6 g/dL (31.0-37.0); MCV 88.5 fL (80.0-100.0); Mean Platelet Volume 6.7; Monocytes # (A) 0.4 k/uL (0-1.0); Monocytes % (A) 4 %; Neutrophils # (A) 7.1 k/uL (1.3-7.7); Neutrophils % (A) 81 %; Platelet Count 268 k/uL (150-450); RBC 5.69 m/uL (4.30-5.90); RDW 13.5 % (11.5-15.5); WBC 8.8 k/uL (3.8-10.6)
[2024-06-08 14:19] LABS: INR 0.9 (<1.2); Partial Thromboplastin Time 24.3 sec (22.0-30.0); Prothrombin Time 10.2 sec (10.0-12.5)
[2024-06-08 14:23] LABS: ALT 21 U/L (4-49); AST 21 U/L (17-59); African American GFR (CKD) >90 (>60 ml/min/1.73 sqM); Albumin 4.1 g/dL (3.5-5.0); Alkaline Phosphatase 90 U/L (38-126); Anion Gap 9 mmol/L; Blood Urea Nitrogen 17 mg/dL (9-20); Calcium 9.7 mg/dL (8.4-10.2); Carbon Dioxide 22 mmol/L (22-30); Chloride 105 mmol/L (98-107); Glucose 258 mg/dL (74-99); Non-African American GFR(CKD) >90 (>60 ml/min/1.73 sqM); Potassium 4.3 mmol/L (3.5-5.1); Sodium 136 mmol/L (137-145); Total Bilirubin 0.8 mg/dL (0.2-1.3); Total Protein 7.3 g/dL (6.3-8.2)
[2024-06-08 14:56] LABS: Appearance,Urine Clear (Clear); Bilirubin,Urine Negative (Negative); Blood,Urine Negative (Negative); Color,Urine Light Yellow; Glucose,Urine (UA) 4+ (Negative); Ketones,Urine Negative (Negative); Leukocyte Esterase,Urine Negative (Negative); Nitrite,Urine Negative (Negative); Protein,Urine Trace (Negative); Specific Gravity,Urine 1.027 (1.001-1.035); Urobilinogen,Urine <2.0 mg/dL (<2.0)
--- NOTE | 2024-06-08 16:25 | CT ---
EXAMINATION TYPE: CT brain wo con CT DLP: 1134.8 mGycm, Automated exposure control for dose reduction was used. DATE OF EXAM: 06/08/2024 3:48 PM COMPARISON: None.. CLINICAL INDICATION:Male, 54 years old with history of dizziness and fall, dizziness, fall TECHNIQUE: Brain: Axial CT images of the brain were obtained with coronal and sagittal reformats created and rev iewed. Contrast used: None. Oral contrast used: None. FINDINGS: Extra-axial spaces: No abnormal extra-axial fluid collections. Basilar cisterns are patent. Ventricular system: Within normal limits. Cerebral parenchyma: No increased attenuation to suggest acute intraparenchymal hemorrhage. The gra y-white matter interface appears maintained. No significant atrophy. White matter unremarkable by C T. Cerebellum: No acute abnormality. Mass effect: No evidence of mass effect or midline shift. Intracranial vasculature: Unremarkable Soft tissues: No acute or concerning abnormality. Visualized orbits: Orbital contents appear grossly intact. Calvarium/osseous structures: No evidence of calvarial fracture. Paranasal sinuses and mastoid air cells: No significant fluid accumulation. Mild/moderate scattered paranasal sinus mucosal thickening, mostly involving the right ethmoid air cells. MRI is more sensitive for detecting acute processes such as infarct, and may be considered if clinica lly warranted. IMPRESSION: No acute intracranial CT abnormality. [facility], , 06/08/2024 4:23 PM
--- NOTE | 2024-06-08 17:10 | XR ---
EXAMINATION TYPE: XR chest 2V DATE OF EXAM: 06/08/2024 3:04 PM CLINICAL INDICATION:Male, 54 years old with history of dizziness; [facility] COMPARISON: None TECHNIQUE: XR chest 2V. Frontal and lateral views of the chest.. FINDINGS: Exam is limited by patient body habitus. Lines/Tubes/Devices: No indwelling lines are seen. Heart/mediastinum: Heart size is normal. Mildly tortuous aorta. Pulmonary vascularity: Not increased, Lungs/Pleura: There is no evidence of pleural effusion, focal consolidation, or pneumothorax. Musculoskeletal: No acute osseous abnormality demonstrated in the limits of the exam. Mild asymmetric elevation of the right hemidiaphragm. Multilevel endplate spurring in the spine. Other findings: None. IMPRESSION: No acute cardiopulmonary abnormality. [facility], , 06/08/2024 5:07 PM
[2024-06-08 17:48] VITALS: BP 163/102; PULSE 77
== END 2024-06-08 17:48 | disposition home or self-care (01) ==
LOC: EC 12:44
CPT/HCPCS: 36415; 70450; 71046; 80053; 81003; 84484; 85025; 85610; 85730; 87636; 93005; 99285